=== PATIENT | female | born 1945 | race African-American/Black ===

== ENCOUNTER 2020-06-11 23:27 | Inpatient (IN) | payer OTHER ==
[~2020-06-11] VITALS: Ht 167.6 cm; Wt 62.6 kg
[2020-06-12 01:32] LABS: HEMATOCRIT. 38.7 % (36.0-48.0); HEMOGLOBIN. 12.7 g/dL (12.0-16.0); MEAN CORPUSCULAR HEMOGLOBIN 30.6 pg (28.0-32.0); MEAN CORPUSCULAR VOLUME 93.7 fL (81.0-99.0); MEAN PLATELET VOLUME 10.9 fl (7.4-10.4); PLATELET 163 x1000/uL (130-400); RED BLOOD CELL COUNT 4.13 mill/uL (4.2-5.4); RED CELL DISTRIBUTION WIDTH 14.3 % (11.6-14.6)
[2020-06-12 01:39] LABS: CHLORIDE 109 mEq/L (98-107)
[2020-06-12 01:43] LABS: ETHANOL BLOOD < 10 mg/dL
[2020-06-12 03:14] LABS: PLATELET ESTIMATE NORMAL
[2020-06-12] MEDS ORDERED: ASPIRIN 81MG TABLET PO ONE (07:45)
[2020-06-12] MEDS ORDERED: OSELTAMIVIR 75MG CAPSULE PO ONE (07:45)
[2020-06-12] MEDS ORDERED: ACETAMINOPHEN 650MG/20.3ML UDC GT PRN (09:15)
[2020-06-12] MEDS ORDERED: ACETAMINOPHEN 325MG TABLET PO PRN ×2 (09:15)
[2020-06-12] MEDS ORDERED: DEXTROSE 50% WATER 50ML SYRINGE IV PRN (09:15)
[2020-06-12] MEDS ORDERED: ONDANSETRON HCL 4MG/2ML INJ IV PRN (09:15)
[2020-06-12] MEDS ORDERED: DIPHENHYDRAMINE 50MG/ML VIAL IV PRN (09:15)
[2020-06-12] MEDS ORDERED: GUAIFENESIN 200MG/10ML SUGAR FREE UDC PO PRN (09:15)
[2020-06-12] MEDS: DEXT 5%/0.45% NACL 1000ML 1,000 ML IV SCH (09:43)
[2020-06-12] MEDS: ENOXAPARIN 40MG/0.4ML SYR SUBCUT SCH (09:47)
[2020-06-12 11:07] LABS: CLARITY URINE CLOUDY (CLEAR); COLOR URINE DARK YELLOW (YELLOW); KETONES URINE 2+ (NEGATIVE); LEUKOCYTE ESTERASE URINE 2+ (NEGATIVE); NITRITE URINE NEGATIVE (NEGATIVE); OCCULT BLOOD URINE NEGATIVE (NEGATIVE); PROTEIN URINE 1+ (NEGATIVE); SPECIFIC GRAVITY URINE 1.025 (1.005-1.030)
[2020-06-12] MEDS: INSULIN LISPRO 100 UNITS/ML SUBCUT SCH ×2 (13:13→17:11)
[2020-06-12] MEDS: BLOOD SUGAR DIAGNOSTIC STRIP TEST SCH ×2 (13:13→16:55)
[2020-06-12] MEDS ORDERED: CEFTRIAXONE 1 G PREMIX 50 ML IV SCH (16:00)
[2020-06-12 16:05] LABS: CREATINE KINASE 37 IU/L (26-192)
[2020-06-12 16:06] LABS: CREATINE KINASE MB FRACTION < 1.0 ng/mL (0.5-3.6)
[2020-06-12] MEDS: CEFTRIAXONE 1,000 MG in DEXTROSE 5% WATER 50 ML IV SCH (16:50)
[2020-06-13 01:30] LABS: CREATINE KINASE 37 IU/L (26-192)
[2020-06-13 01:31] LABS: CREATINE KINASE MB FRACTION < 1.0 ng/mL (0.5-3.6)
[2020-06-13] MEDS: INSULIN LISPRO 100 UNITS/ML SUBCUT SCH ×4 (07:00→21:00)
[2020-06-13] MEDS: DEXT 5%/0.45% NACL 1000ML 1,000 ML IV SCH ×2 (09:20→18:50)
[2020-06-13] MEDS: AZITHROMYCIN 500 MG in DEXT 5% WATER 250 ML IV SCH (10:00)
[2020-06-13] MEDS: BLOOD SUGAR DIAGNOSTIC STRIP TEST SCH ×4 (10:02→21:47)
[2020-06-13 11:39] LABS: BASOPHILS % 0.7 % (0.0-2.0); EOSINOPHILS % 0.6 % (0.0-5.0); HEMATOCRIT. 37.3 % (36.0-48.0); HEMOGLOBIN. 12.2 g/dL (12.0-16.0); LYMPHOCYTES % 13.2 % (20.0-50.0); MEAN CORPUSCULAR VOLUME 94.5 fL (81.0-99.0); MEAN PLATELET VOLUME 11.4 fl (7.4-10.4); NEUTROPHILS % 77.5 % (40.0-76.0); PLATELET 178 x1000/uL (130-400); RED BLOOD CELL COUNT 3.95 mill/uL (4.2-5.4); RED CELL DISTRIBUTION WIDTH 13.9 % (11.6-14.6)
[2020-06-13 11:47] LABS: CHLORIDE 113 mEq/L (98-107)
[2020-06-13 11:54] LABS: LDL CHOLESTEROL 103 mg/dL (5-100)
[2020-06-13 11:56] LABS: HDL CHOLESTEROL 43 mg/dL (40-59)
[2020-06-13] MEDS: ENOXAPARIN 40MG/0.4ML SYR SUBCUT SCH (12:44)
[2020-06-13] MEDS: CEFTRIAXONE 1,000 MG in DEXTROSE 5% WATER 50 ML IV SCH (20:46)
[2020-06-14] MEDS: INSULIN LISPRO 100 UNITS/ML SUBCUT SCH ×3 (06:22→17:19)
[2020-06-14] MEDS: BLOOD SUGAR DIAGNOSTIC STRIP TEST SCH ×3 (06:22→17:10)
[2020-06-14] MEDS: ENOXAPARIN 40MG/0.4ML SYR SUBCUT SCH (10:00)
[2020-06-14 11:30] VITALS: BP 113/71
[2020-06-14 12:00] VITALS: BP 131/71
[2020-06-14 16:00] VITALS: BP 137/75
[2020-06-14] MEDS: CEFTRIAXONE 1,000 MG in DEXTROSE 5% WATER 50 ML IV SCH (18:07)
[2020-06-14] MEDS: DEXT 5%/0.45% NACL 1000ML 1,000 ML IV SCH (18:07)
[2020-06-14] MEDS: AZITHROMYCIN 500 MG in DEXT 5% WATER 250 ML IV SCH (18:07)
[2020-06-14 22:00] VITALS: BP 100/56
[2020-06-15] VITALS: BP 122/71
[2020-06-15 04:00] VITALS: BP 125/66
[2020-06-15 08:00] VITALS: BP 134/71
[2020-06-15] MEDS: AZITHROMYCIN 500 MG in DEXT 5% WATER 250 ML IV SCH ×2 (09:00→09:11)
[2020-06-15] MEDS: DEXAMETHASONE 4MG TABLET PO SCH (09:11)
[2020-06-15] MEDS: ENOXAPARIN 40MG/0.4ML SYR SUBCUT SCH (09:11)
[2020-06-15] MEDS: SODIUM CHLORIDE 0.9% 1,000 ML IV SCH (11:00)
[2020-06-15 12:00] VITALS: BP 124/65
[2020-06-15] MEDS ORDERED: LIDOCAINE HCL 1% 20ML VIAL (Pyxis) INJ ONE (14:09)
[2020-06-15] MEDS: AZITHROMYCIN 500 MG TABLET PO SCH (15:42)
[2020-06-15 16:00] VITALS: BP 114/78
[2020-06-15] MEDS: CEFTRIAXONE 1,000 MG in DEXTROSE 5% WATER 50 ML IV SCH (16:21)
[2020-06-15 20:00] VITALS: BP 113/62
[2020-06-15] MEDS: DEXT 5%/0.45% NACL 1000ML 1,000 ML IV SCH (20:35)
[2020-06-16] VITALS (7 sets, daily range): BP systolic 120–139; BP diastolic 65–75
[2020-06-16] MEDS: SODIUM CHLORIDE 0.9% 1,000 ML IV SCH (03:40)
[2020-06-16 07:36] LABS: BASOPHILS % 0.6 % (0.0-2.0); EOSINOPHILS % 0.2 % (0.0-5.0); HEMATOCRIT. 34.8 % (36.0-48.0); HEMOGLOBIN. 11.4 g/dL (12.0-16.0); LYMPHOCYTES % 18.8 % (20.0-50.0); MEAN CORPUSCULAR HEMOGLOBIN 30.7 pg (28.0-32.0); MEAN CORPUSCULAR VOLUME 93.4 fL (81.0-99.0); MEAN PLATELET VOLUME 11.2 fl (7.4-10.4); MONOCYTES % 9.7 % (2.0-8.0); NEUTROPHILS % 70.7 % (40.0-76.0); PLATELET 194 x1000/uL (130-400); RED BLOOD CELL COUNT 3.72 mill/uL (4.2-5.4); RED CELL DISTRIBUTION WIDTH 13.7 % (11.6-14.6)
[2020-06-16 07:42] LABS: CHLORIDE 113 mEq/L (98-107)
[2020-06-16 07:48] LABS: PHOSPHORUS 2.7 mg/dL (2.5-4.9)
[2020-06-16] MEDS: AZITHROMYCIN 500 MG TABLET PO SCH (09:34)
[2020-06-16] MEDS: DEXAMETHASONE 4MG TABLET PO SCH (09:45)
[2020-06-16] MEDS: ENOXAPARIN 40MG/0.4ML SYR SUBCUT SCH (10:34)
[2020-06-16] MEDS: DEXT 5%/0.45% NACL 1000ML 1,000 ML IV SCH (14:16)
[2020-06-16] MEDS: CEFTRIAXONE 1,000 MG in DEXTROSE 5% WATER 50 ML IV SCH (16:12)
[2020-06-17] VITALS: BP 135/77
[2020-06-17 04:00] VITALS: BP 127/70
[2020-06-17 08:00] VITALS: BP 126/61
[2020-06-17] MEDS: DEXAMETHASONE 4MG TABLET PO SCH (09:56)
[2020-06-17] MEDS: DEXT 5%/0.45% NACL 1000ML 1,000 ML IV SCH (09:57)
[2020-06-17] MEDS: ENOXAPARIN 40MG/0.4ML SYR SUBCUT SCH (09:57)
[2020-06-17] MEDS: AZITHROMYCIN 500 MG TABLET PO SCH (09:57)
[2020-06-17 12:00] VITALS: BP 127/64
[2020-06-17] MEDS: SODIUM CHLORIDE 0.9% 1,000 ML IV SCH (12:47)
[2020-06-17 14:42] VITALS: BP 127/64
== END 2020-06-17 15:55 | disposition home health service (06) | DRG 177 ==
LOC: ER 23:27 → MICUSO 06-12 07:44 → 8WST 06-14 09:07
PROVIDERS: ADMIT Family Medicine; ATTEND Family Medicine
PROC: 05HY33Z Insertion of Infusion Device into Upper Vein, Percutaneous Approach (ICD-10-PCS; principal; 2020-06-16)
PROC: B54MZZA Ultrasonography of Right Upper Extremity Veins, Guidance (ICD-10-PCS; 2020-06-16)
DX: U07.1 COVID-19 (principal); J12.89 Other viral pneumonia; J96.00 Acute respiratory failure, unspecified whether with hypoxia or hypercapnia; N39.0 Urinary tract infection, site not specified; G93.40 Encephalopathy, unspecified; E11.9 Type 2 diabetes mellitus without complications; F03.90 Unspecified dementia, unspecified severity, without behavioral disturbance, psychotic disturbance, mood disturbance, and anxiety; R62.7 Adult failure to thrive; Z68.22 Body mass index [BMI] 22.0-22.9, adult
CPT/HCPCS: 36415; 71045; 74018; 76937; 80048; 80053; 80061; 80076; 82550; 82553; 82728; 82962; 83615; 83735; 84100; 84145; 84484; 85025; 85379; 86141; 87635; 93005; 99291; C1725; C1893; J0456; J0696; J1650; J3490; J7030; J7060; J8540

== ENCOUNTER 2025-03-04 18:47 | Emergency (ER) | payer OTHER ==
[~2025-03-04] VITALS: Ht 165.1 cm; Wt 78.0 kg
[2025-03-04 18:49] VITALS: O2SAT 98
[2025-03-04 20:20] LABS: HEMATOCRIT. 41.4 % (36.0-48.0); HEMOGLOBIN. 13.6 g/dL (12.0-16.0); MEAN PLATELET VOLUME 11.2 fl (7.4-10.4); PLATELET 104 x1000/uL (130-400); RED BLOOD CELL COUNT 4.33 mill/uL (4.2-5.4); RED CELL DISTRIBUTION WIDTH 14.7 % (11.6-14.6)
[2025-03-04 20:31] LABS: INR 1.0
[2025-03-04 20:32] LABS: CREATININE 1.0 mg/dL (0.6-1.0)
[2025-03-04 20:33] LABS: TROPONIN I HIGH SENSITIVITY 27 ng/L (3.0-34); UREA NITROGEN BLOOD 13 mg/dL (9-23)
[2025-03-04 20:34] LABS: ASPARTATE AMINOTRANSFERASE 21 IU/L (<34)
[2025-03-04 20:35] LABS: BILIRUBIN DIRECT 0.1 mg/dL (<=3.0); BILIRUBIN TOTAL 0.5 mg/dL (0.1-1.0); PROTEIN TOTAL 7.4 g/dL (6.0-8.3)
[2025-03-04 20:44] LABS: BASOPHILS % MANUAL 2.0 % (0.0-2.0); EOSINOPHILS % MANUAL 3.0 % (0.0-5.0); LYMPHOCYTES % MANUAL 18.0 % (20.0-60.0); MONOCYTES % MANUAL 6.0 % (2.0-8.0); NEUTROPHILS % MANUAL 71.0 % (45.0-75.0); PLATELET ESTIMATE NORMAL
[2025-03-04 23:00] VITALS: BP 129/75; PULSE 69; RESP 18; TEMP 36.9; O2SAT 100
== END 2025-03-05 00:02 | disposition left against medical advice (07) ==
LOC: ER 18:47 → CMPBEDREQ 03-05 08:55
DX: R07.89 Other chest pain (principal); Z88.6 Allergy status to analgesic agent; Z53.29 Procedure and treatment not carried out because of patient's decision for other reasons
CPT/HCPCS: 36415; 71045; 80048; 80076; 83880; 84484; 85025; 93005; 99285